=== PATIENT | male | born 1955 | race Two or more races ===

== ENCOUNTER 2017-04-30 12:37 | Inpatient (IN) | payer MEDICAID ==
[~2017-04-30] VITALS: Ht 167.6 cm; Wt 80.7 kg
[~2017-04-30 12:37] MED LIST: DESFLURANE ANESTHESIA GAS 240 ML BOTTLE IH ONE; DEXAMETHASONE SOD PHOSPHATE 4 MG INJ IV ONE; GLYCOPYRROLATE 0.2 MG/ML VIAL MC ONE; KETOROLAC TROMETHAMINE 30 MG INJ IM ONE; LIDOCAINE HCL 2% 20 ML VIAL MC ONE; NEOSTIGMINE METHYLSULFATE 10 MG/10 ML VIAL IV ONE; ONDANSETRON 4 MG/2 ML VIAL IV ONE; PROPOFOL 200 MG/20 ML BOTTLE IV ONE
--- NOTE | 2017-04-30 12:51 | NUR ---
Dr Elaine at the bedside for MSE.
[2017-04-30 13:20] LABS: *BLOOD, URINE Trace-intact (NEGATIVE); *CLARITY,URINE SLIGHTLY CLOUDY (CLEAR); *COLOR,URINE Orange (YELLOW); *KETONES,URINE 1+ (NEGATIVE); *PROTEIN,URINE 2+ (NEGATIVE); LEUKOCYTE ESTERASE ,URINE NEGATIVE (NEGATIVE); NITRITE, URINE NEGATIVE (NEGATIVE); PH,URINE 5.5 (5.0-8.0); UGLUCOSE NEGATIVE (NEGATIVE)
--- NOTE | 2017-04-30 13:20 | NUR ---
PATIENT TAKEN TO CT BY JANETH CORONEL PATIENT IN A WC.
[2017-04-30 13:32] LABS: *BILIRUBIN,URIN 2+ (NEGATIVE)
[2017-04-30 13:34] LABS: BACTERIA,URINE NONE SEEN /HPF (NONE SEEN); MUCUS,URINE MODERATE /LPF (0-FEW); SQUAMOUS EPITHELIAL CELL,UR FEW /HPF (NONE SEEN); URINE AMORPHOUS URATE FEW /HPF; WBC,URINE 0-3 /HPF (0-3)
[2017-04-30] MEDS ORDERED: IV NORMAL SALINE 1000 ML BAG IV ONE (14:30)
[2017-04-30] MEDS ORDERED: CEFTRIAXONE 1 G in IV DEXTROSE 5% 50 ML IV ONE (14:45)
[2017-04-30] MEDS ORDERED: METRONIDAZOLE 500 MG/NS 100 ML PIGGYBACK IV ONE (14:45)
[2017-04-30] MEDS ORDERED: CEFTRIAXONE 1 G VIAL ONE (14:50)
[2017-04-30 14:53] LABS: BASOPHILS # (AUTO) 0.1 K/uL (0.0-8.0); BASOPHILS % (AUTO) 0.4 % (0.0-2.0); EOSINOPHILS % (AUTO) 0.1 % (0.0-7.0); HEMATOCRIT 42.9 % (36.7-47.1); HEMOGLOBIN 14.5 g/dL (12.5-16.3); LYMPHOCYTES # (AUTO) 0.9 K/uL (20.0-40.0); MEAN CORPUSCULAR HEMOGLOBIN 29.5 uug (23.8-33.4); MEAN CORPUSCULAR HGB CONC 34 g/dL (32.5-36.3); MEAN CORPUSCULAR VOLUME 87.5 fL (73.0-96.2); MONOCYTES # (AUTO) 1.8 K/uL (2.0-10.0); MONOCYTES % (AUTO) 9.8 % (0.0-11.0); NEUTROPHILS # (AUTO) 15.5 K/uL (1.8-8.9); NEUTROPHILS % (AUTO) 84.7 % (38.5-71.5); PLATELET COUNT (AUTO) 176 K/uL (152-348); WHITE BLOOD COUNT (AUTO) 18.3 K/uL (3.6-10.2)
[2017-04-30] MEDS ORDERED: ONDANSETRON 4 MG/2 ML VIAL ONE (14:54)
[2017-04-30 14:59] LABS: CREATININE 1.1 mg/dL (0.6-1.3); POTASSIUM 3.6 mmol/L (3.5-5.1)
[2017-04-30] MEDS ORDERED: MORPHINE SULFATE 4 MG/1 ML DISP.SYRIN ONE (14:59)
[2017-04-30] MEDS ORDERED: METRONIDAZOLE 500 MG/NS 100ML 100 ML IV ONE (14:59)
[2017-04-30] MEDS ORDERED: ONDANSETRON IV *ER 4 MG/2 ML VIAL IV ONE (15:00)
[2017-04-30] MEDS ORDERED: MORPHINE SULFATE 4 MG/1 ML DISP.SYRIN IV ONE (15:00)
[2017-04-30] MEDS ORDERED: HYDROMORPHONE 1 MG/1 ML DISP.SYRIN IV ONE (15:00)
[2017-04-30 15:04] LABS: BILIRUBIN,TOTAL 2.5 mg/dL (0.2-1.0); TOTAL PROTEIN, SERUM 7.2 g/dL (6.4-8.2)
--- NOTE | 2017-04-30 15:31 | NUR ---
DR SALGADO(SURGEON) AT THE BEDSIDE FOR FAMILY AND PT CONSULT.
--- NOTE | 2017-04-30 15:32 | NUR ---
Pt signed consent for surgeory after Dr Valencia explaination. Pre op check list completed and placed in the chart.
--- NOTE | 2017-04-30 15:49 | NUR ---
Patient is resting comfortably in bed with eyes closed, NAD noted.
[2017-04-30] MEDS ORDERED: BUPIVACAINE 0.25% 30 ML VIAL ONE (16:00)
[2017-04-30] MEDS ORDERED: SUCCINYLCHOLINE CHLORIDE 200 MG/10 ML VIAL ONE (16:01)
[2017-04-30] MEDS ORDERED: ROCURONIUM BROMIDE 50 MG/5 ML VIAL ONE (16:01)
--- NOTE | 2017-04-30 16:16 | NUR ---
Pt left Er via dominick w/ OR team in , all belongings sent w/ family.
[2017-04-30] MEDS ORDERED: POLYMYXIN B SULFATE 500,000 UNITS, BACITRACIN 50,000 UNITS, NORMAL SALINE 20 ML MC ONE ×3 (17:00)
[2017-04-30] MEDS ORDERED: FENTANYL CITRATE 100 MCG/2 ML AMPUL ONE (18:02)
[2017-04-30] MEDS ORDERED: HYDROCODONE/APAP 5-325MG TABLET PO PRN (18:30)
[2017-04-30] MEDS ORDERED: ONDANSETRON 4 MG/2 ML VIAL IV PRN (18:30)
--- NOTE | 2017-04-30 18:35 | NUR ---
RECIEVED PATIENT FROM RR AWAKE ALERT VS TAKEN STABLE SMALL BANDAGE X4 AT ABD D/I WITH ONE DIANE INPLACE DRAINING MOD AMT OF RED DRAINAGE FLD CONTINUE O2 AT 3L O2 SAT WAS 94% NO PAIN AT THIS ON FALL PRECAUTION BED ALARM ON AND CALL LIGHT WITHIN REACH ,REMIND TO CALL WHEN NEEDED
[2017-04-30 18:39] VITALS: BP 118/73
--- NOTE | 2017-04-30 18:45 | NUR ---
START WITH ICE CHIP ZOE WELL NO N/V CLOSED OBSERVATION
--- NOTE | 2017-04-30 19:00 | NUR ---
Received patient awake, able to communicate in Emirati only with a little Australian. Complaint of tolerable pain at this time on lower abdomen puncture sites. Noted puncture sites x3 with band aid intact. Lower abdomen puncture site with DIANE, intact and patent with moderate amount of bloody output. IVF infusing on right FA, no s/s of infiltration noted. Safety measures maintained. Continue care as planned.
[2017-04-30] MEDS: IV LACTATED RINGERS SOLUTION 1,000 ML IV PRN (19:03)
[2017-04-30] MEDS: MORPHINE SULFATE 2 MG/1 ML DISP.SYRIN IV PRN ×2 (20:10→23:23)
[2017-04-30] MEDS: PANTOPRAZOLE SODIUM 40 MG VIAL IV SCH (20:10)
[2017-04-30] MEDS: CEFAZOLIN 1 G in PREMIXED 1 EACH IV SCH (20:10)
[2017-04-30 20:33] VITALS: BP 138/84
[2017-04-30] MEDS: METRONIDAZOLE 500 MG/NS 100ML 500 MG in PREMIXED 1 EACH IV SCH (23:19)
[2017-05-01] VITALS: BP 141/77
[2017-05-01] MEDS: MORPHINE SULFATE 2 MG/1 ML DISP.SYRIN IV PRN ×2 (01:36→15:10)
[2017-05-01] MEDS: IV LACTATED RINGERS SOLUTION 1,000 ML IV PRN (02:33)
[2017-05-01] MEDS: CEFAZOLIN 1 G in PREMIXED 1 EACH IV SCH ×3 (03:03→18:15)
[2017-05-01 04:00] VITALS: BP 125/70
[2017-05-01 06:18] LABS: BASOPHILS % (AUTO) 0.2 % (0.0-2.0); HEMATOCRIT 40.3 % (36.7-47.1); HEMOGLOBIN 13.6 g/dL (12.5-16.3); LYMPHOCYTES # (AUTO) 0.6 K/uL (20.0-40.0); LYMPHOCYTES % (AUTO) 3.6 % (20.5-51.5); MEAN CORPUSCULAR HEMOGLOBIN 29.9 uug (23.8-33.4); MEAN CORPUSCULAR HGB CONC 34 g/dL (32.5-36.3); MEAN CORPUSCULAR VOLUME 88.7 fL (73.0-96.2); MONOCYTES # (AUTO) 1.5 K/uL (2.0-10.0); MONOCYTES % (AUTO) 8.3 % (0.0-11.0); NEUTROPHILS # (AUTO) 15.6 K/uL (1.8-8.9); NEUTROPHILS % (AUTO) 87.9 % (38.5-71.5); PLATELET COUNT (AUTO) 176 K/uL (152-348); RED BLOOD CELL COUNT(AUTO) 4.54 MIL/uL (4.06-5.63); WHITE BLOOD COUNT (AUTO) 17.7 K/uL (3.6-10.2)
--- NOTE | 2017-05-01 06:19 | NUR ---
END SHIFT REPORT: Medicated 3x for pain with relief. No further complaint presented. IS use and frequent turning encouraged. No s/s of adverse reaction noted from antibiotics. All needs attended and met. No significant event reported all night.
[2017-05-01] MEDS: METRONIDAZOLE 500 MG/NS 100ML 500 MG in PREMIXED 1 EACH IV SCH ×3 (06:23→22:20)
[2017-05-01] MEDS: MORPHINE SULFATE 4 MG/1 ML DISP.SYRIN IV PRN ×3 (06:31→21:42)
[2017-05-01] MEDS: PANTOPRAZOLE SODIUM 40 MG VIAL IV SCH (10:13)
[2017-05-01 11:05] VITALS: BP 126/61
[2017-05-01 15:05] VITALS: BP 123/72
--- NOTE | 2017-05-01 19:00 | NUR ---
Patient in no distress, no SOB. Pain management as ordered. Incision sites on lower abdomen intact, no bleeding noted. DIANE drain on suprapubic site intact/patent, draining slightly red tinged liquid. VS stable, afebrile. Safety measures in place.
--- NOTE | 2017-05-01 19:25 | NUR ---
Received pt lying in bed. AAOx4. Not in acute distress. IV site on RFA intact and patent. O2 sat @ 91% on RA. DIANE drain in place. Safety measure initiated and call bear within reach.
[2017-05-01 19:54] VITALS: BP 141/76
--- NOTE | 2017-05-01 21:20 | NUR ---
pt seen by Dr. Valencia and order to increase Morphine to 6mg iv q2hrs prn for pain. Order carried out.
--- NOTE | 2017-05-01 23:42 | NUR ---
Drained DIANE drain and obtain 75ml of serosanguineous drainage.
[2017-05-02] MEDS: CEFAZOLIN 1 G in PREMIXED 1 EACH IV SCH ×3 (02:06→18:07)
[2017-05-02] MEDS: MORPHINE SULFATE 4 MG/1 ML DISP.SYRIN IV PRN ×4 (02:06→20:39)
[2017-05-02 04:00] VITALS: BP 146/92
[2017-05-02] MEDS: METRONIDAZOLE 500 MG/NS 100ML 500 MG in PREMIXED 1 EACH IV SCH ×3 (06:06→23:44)
[2017-05-02] MEDS: PANTOPRAZOLE SODIUM 40 MG TABLET.DR PO SCH (06:06)
--- NOTE | 2017-05-02 06:23 | NUR ---
Pt AOx4, Thai speaking only. Pain on abdominal area manage with Morphine 6mg q2hrs prn. DIANE drain intact and draining well. IV site on RFA intact and patent. Not in acute distress. O2 sat at 92%. Safety measure maintained and call bear within reach.
[2017-05-02 06:37] LABS: BASOPHILS % (AUTO) 0.1 % (0.0-2.0); EOSINOPHILS % (AUTO) 0.1 % (0.0-7.0); HEMATOCRIT 44.5 % (36.7-47.1); HEMOGLOBIN 14.9 g/dL (12.5-16.3); LYMPHOCYTES # (AUTO) 0.9 K/uL (20.0-40.0); LYMPHOCYTES % (AUTO) 6.4 % (20.5-51.5); MEAN CORPUSCULAR HEMOGLOBIN 29.8 uug (23.8-33.4); MEAN CORPUSCULAR HGB CONC 34 g/dL (32.5-36.3); MEAN CORPUSCULAR VOLUME 88.7 fL (73.0-96.2); MONOCYTES # (AUTO) 1.5 K/uL (2.0-10.0); MONOCYTES % (AUTO) 11.1 % (0.0-11.0); NEUTROPHILS # (AUTO) 11.1 K/uL (1.8-8.9); NEUTROPHILS % (AUTO) 82.3 % (38.5-71.5); PLATELET COUNT (AUTO) 242 K/uL (152-348); RED BLOOD CELL COUNT(AUTO) 5.01 MIL/uL (4.06-5.63); WHITE BLOOD COUNT (AUTO) 13.5 K/uL (3.6-10.2)
--- NOTE | 2017-05-02 07:30 | NUR ---
Rec'd pt in bed awake. A&Ox4. Frisian speaking only. Communicated with pt via staff translation. Overbed trapeze in place. Pt admitted for appendicitis, status post appendectomy. Noted with 3 surgical sites on abdominal area. Noted with 80mL serosanguineous output to DIANE drain to suprapubic area at this time. Pt denies pain at this time. Denies nausea. Will monitor for change.
[2017-05-02] MEDS: MORPHINE SULFATE 2 MG/1 ML DISP.SYRIN IV PRN (08:22)
--- NOTE | 2017-05-02 09:00 | NUR ---
Instructed patient to use incentive spirometer as ordered. Patient verbalized understanding.
[2017-05-02] MEDS ORDERED: BISACODYL 5 MG TABLET.DR PO ONE (11:15)
[2017-05-02 11:30] VITALS: BP 129/84
[2017-05-02 13:32] LABS: CREATININE 1.1 mg/dL (0.6-1.3); POTASSIUM 4.1 mmol/L (3.5-5.1)
[2017-05-02 13:49] LABS: BILIRUBIN,TOTAL 0.8 mg/dL (0.2-1.0); TOTAL PROTEIN, SERUM 6.6 g/dL (6.4-8.2)
[2017-05-02 15:30] VITALS: BP 155/83
--- NOTE | 2017-05-02 16:15 | NUR ---
Encouraged patient to move from bed to chair, out of bed as ordered and to use incentive spirometer. Family at bedside. Patient/family verbalized understanding but patient Addendum: 05/02/17 at 1846 by LUISA AGUILAR RN Add: but patient refused to be transferred from bed to chair at this time and stated he will try later.
[2017-05-02 20:00] VITALS: BP 157/90
--- NOTE | 2017-05-02 21:00 | NUR ---
PATIENT ALERT, ORIENTED,AFEBRILE,ABDOMEN REMAINS DISTENDED AND TENDER TO SURGICAL SITE,BOWEL SOUND PRESENT,MORPHINE IV MEDICATED FOR PAIN CONTROL, USING OF INCENTIVE SPIROMETER,ENCOURAGE TO AMBULATE WITH FAMILY ON [address],SEROUS DRAINAGE SMALL AMOUNT NOTED.
[2017-05-03] MEDS: MORPHINE SULFATE 2 MG/1 ML DISP.SYRIN IV PRN (00:45)
[2017-05-03] MEDS: CEFAZOLIN 1 G in PREMIXED 1 EACH IV SCH ×3 (03:58→18:51)
[2017-05-03] MEDS: MORPHINE SULFATE 4 MG/1 ML DISP.SYRIN IV PRN ×4 (03:59→20:47)
[2017-05-03 04:41] VITALS: BP 150/81
[2017-05-03] MEDS: METRONIDAZOLE 500 MG/NS 100ML 500 MG in PREMIXED 1 EACH IV SCH ×3 (06:27→23:14)
[2017-05-03] MEDS: PANTOPRAZOLE SODIUM 40 MG TABLET.DR PO SCH (06:27)
[2017-05-03 06:30] LABS: BASOPHILS % (AUTO) 0.5 % (0.0-2.0); EOSINOPHILS # (AUTO) 0.2 K/uL (0.0-0.7); EOSINOPHILS % (AUTO) 2.3 % (0.0-7.0); HEMATOCRIT 43.6 % (36.7-47.1); HEMOGLOBIN 14.7 g/dL (12.5-16.3); LYMPHOCYTES % (AUTO) 9.9 % (20.5-51.5); MEAN CORPUSCULAR HEMOGLOBIN 29.9 uug (23.8-33.4); MEAN CORPUSCULAR HGB CONC 34 g/dL (32.5-36.3); MEAN CORPUSCULAR VOLUME 88.9 fL (73.0-96.2); MONOCYTES # (AUTO) 1.6 K/uL (2.0-10.0); MONOCYTES % (AUTO) 16.1 % (0.0-11.0); NEUTROPHILS % (AUTO) 71.2 % (38.5-71.5); PLATELET COUNT (AUTO) 252 K/uL (152-348); RED BLOOD CELL COUNT(AUTO) 4.91 MIL/uL (4.06-5.63); WHITE BLOOD COUNT (AUTO) 9.8 K/uL (3.6-10.2)
[2017-05-03 07:22] LABS: BILIRUBIN,TOTAL 0.5 mg/dL (0.2-1.0); PHOSPHOROUS 3.7 mg/dL (2.5-4.9); POTASSIUM 4.3 mmol/L (3.5-5.1); TOTAL PROTEIN, SERUM 6.2 g/dL (6.4-8.2)
[2017-05-03] MEDS: IV LACTATED RINGERS SOLUTION 1,000 ML IV PRN (08:00)
--- NOTE | 2017-05-03 08:00 | NUR ---
awake alert cooperate well speak yakut only no sob or pain at this time enc to use incentive spirometer when awake doing well up yann 1500 ABD SLIGHTLY DISTENTION STATE PASSING LITTLE GAS DIANE INTACT WITH SMALL SEROSANQUINEOUS DRANAGE ON FALL PRECAUTION CALL LEDEZMA IN REACH AND REMIND TO CALL WHEN NEEDED
[2017-05-03 08:21] LABS: BAND % (MANUAL) 4 % (0-10); EOSINOPHILS % (MANUAL) 2 % (0-8); LYMPHOCYTES % (MANUAL) 10 % (20-40); MONOCYTES % (MANUAL) 14 % (2-10); NEUTROPHILS % (MANUAL) 70 % (42-75)
--- NOTE | 2017-05-03 10:00 | NUR ---
ASSIST UP AMBULATE IN THE [address] DOING WELL VOIDING OK USE URENAL AT BEDSIDE RESTING WELL
[2017-05-03 11:21] VITALS: BP 160/84
[2017-05-03] MEDS: AMLODIPINE 5 MG TABLET PO SCH (14:30)
--- NOTE | 2017-05-03 14:30 | NUR ---
OOB UP AMB IN THE [address] DOING WELL STATE NO PASSING GAS YET NO N/V STATE PAIN MED HELP TO RELIEF PAIN
[2017-05-03] MEDS ORDERED: BISACODYL 10 MG SUPP.RECT RC STA (14:50)
--- NOTE | 2017-05-03 15:00 | NUR ---
DR SALGADO SEEN PATIENT AND PT CONDITION REGARDING NO PASSING GAS AND ABD DISTENTION NEW ORDER IN CHART DULCOLAX SUPP GIVE AND KUB WAS ORDER
[2017-05-03 15:25] VITALS: BP 165/91
--- NOTE | 2017-05-03 15:45 | NUR ---
KUB AT BEDSIDE ZOE PROCEDURE WELL RESTING QUIET CONTINUE IVF ORDER
--- NOTE | 2017-05-03 16:20 | NUR ---
DR SALGADO WAS CALL REGARDING KUB RESULT AND MESSAGE LEFT
--- NOTE | 2017-05-03 16:35 | NUR ---
DR SALGADO CALL BACK AND NOTIFY OF KUB RESULT ,NEW ORDER IN CHART DIET CHANGE TO CLEAR LIQ
--- NOTE | 2017-05-03 17:30 | NUR ---
STABLE HEMODYNAMIC STATUS NO N/V BUT ABD STILL DISTENSION CONTINUE IVF INFUSION WELL SAFETY MEASURE PROVIDED CALL LIGHT IN REACH AND REMIND TO CALL WHEN NEEDED
--- NOTE | 2017-05-03 18:00 | NUR ---
OOB UP IN CHAIR EAT CLEAR LIQ ZOE MOD AMT NO N/V START BURBING BUT NO BM NO PASSING GAS AT THIS TIME WILL AMBULATE AFTER DINNER FAMILY AT BEDSIDE NO PAIN
--- NOTE | 2017-05-03 18:30 | NUR ---
AMB IN THE HALLWAY X2 AND ASSIST TO USE BRP ,HAVING 1 SMALL BM AND STATE PASSING GAS AT THIS TIME ,BACK TO BED RESTING WELL
[2017-05-03 20:00] VITALS: BP 149/77
--- NOTE | 2017-05-03 20:00 | NUR ---
ABDOMEN LESS DISTENDED,MILD TENDER,SMALL AMOUNT SEROUS DRAINAGE TO DIANE DRAINAGE LOWER ABDOMEN, AMBULATE IN HALLWAY WELL, PAIN MEDS GIVEN,PATIENT STATED ALREADY PASSING GAS , AND FEELS BETTER.
[2017-05-04] MEDS: MORPHINE SULFATE 4 MG/1 ML DISP.SYRIN IV PRN ×3 (01:57→08:52)
[2017-05-04] MEDS: CEFAZOLIN 1 G in PREMIXED 1 EACH IV SCH ×3 (02:11→18:45)
[2017-05-04 04:54] VITALS: BP 154/86
[2017-05-04] MEDS: PANTOPRAZOLE SODIUM 40 MG TABLET.DR PO SCH (06:02)
[2017-05-04] MEDS: METRONIDAZOLE 500 MG/NS 100ML 500 MG in PREMIXED 1 EACH IV SCH ×3 (06:02→23:41)
[2017-05-04 06:54] LABS: BASOPHILS % (AUTO) 0.4 % (0.0-2.0); EOSINOPHILS # (AUTO) 0.2 K/uL (0.0-0.7); EOSINOPHILS % (AUTO) 2.1 % (0.0-7.0); HEMATOCRIT 42.4 % (36.7-47.1); HEMOGLOBIN 14.2 g/dL (12.5-16.3); LYMPHOCYTES # (AUTO) 0.7 K/uL (20.0-40.0); LYMPHOCYTES % (AUTO) 7.2 % (20.5-51.5); MEAN CORPUSCULAR HEMOGLOBIN 29.6 uug (23.8-33.4); MEAN CORPUSCULAR HGB CONC 33 g/dL (32.5-36.3); MEAN CORPUSCULAR VOLUME 88.5 fL (73.0-96.2); MONOCYTES # (AUTO) 1.5 K/uL (2.0-10.0); MONOCYTES % (AUTO) 15.6 % (0.0-11.0); NEUTROPHILS # (AUTO) 7.2 K/uL (1.8-8.9); NEUTROPHILS % (AUTO) 74.7 % (38.5-71.5); PLATELET COUNT (AUTO) 232 K/uL (152-348); RED BLOOD CELL COUNT(AUTO) 4.79 MIL/uL (4.06-5.63); WHITE BLOOD COUNT (AUTO) 9.6 K/uL (3.6-10.2)
--- NOTE | 2017-05-04 07:50 | NUR ---
Awake, alert, oriented x 4, malay speaking, on moderate high back rest. Lap site x 3, clean and dry. Abdomen firm, distended, complaining of severe pain. IVF infusing.
[2017-05-04] MEDS: AMLODIPINE 5 MG TABLET PO SCH (08:51)
[2017-05-04] MEDS: IV LACTATED RINGERS SOLUTION 1,000 ML IV PRN (08:52)
--- NOTE | 2017-05-04 09:00 | NUR ---
Assisted out of bed then ambulating in the hallway, and sitting on the chair. Use of IS reinstructed.
[2017-05-04 09:37] LABS: BAND % (MANUAL) 6 % (0-10); BASOPHILS % (MANUAL) 1 % (0-2); EOSINOPHILS % (MANUAL) 2 % (0-8); LYMPHOCYTES % (MANUAL) 9 % (20-40); MONOCYTES % (MANUAL) 13 % (2-10); NEUTROPHILS % (MANUAL) 69 % (42-75)
--- NOTE | 2017-05-04 11:00 | NUR ---
Dr. Valencia seen and examined patient, aware of firm and distended abdomen. With order of Dulcolax suppository. DIANE drain removed, dressing applied.
[2017-05-04 11:02] VITALS: BP 133/88
[2017-05-04] MEDS ORDERED: BISACODYL 10 MG SUPP.RECT RC ONE (12:15)
[2017-05-04] MEDS: MORPHINE SULFATE 2 MG/1 ML DISP.SYRIN IV PRN ×2 (13:24→21:12)
[2017-05-04 15:00] VITALS: BP 149/77
--- NOTE | 2017-05-04 16:39 | NUR ---
With BM to moderate amount stool after Dulcolax suppository. Diet advance to full liquid.
--- NOTE | 2017-05-04 18:53 | NUR ---
Afebrile. Full liquids followed up, to be brought in from the dietary
[2017-05-04 20:00] VITALS: BP 165/86
[2017-05-05] MEDS: CEFAZOLIN 1 G in PREMIXED 1 EACH IV SCH ×3 (02:50→17:54)
[2017-05-05] MEDS: MORPHINE SULFATE 2 MG/1 ML DISP.SYRIN IV PRN ×3 (02:50→23:39)
--- NOTE | 2017-05-05 04:30 | NUR ---
ASSUMED CARE AT 0430.DUE MEDS GIVEN AND PRN MEDICATION FOR PAIN GIVEN REQUESTED .SEE EMAR . PATIENT IN BED NO RESPIRATORY DISTRESS . URINAL AT B/S. CALL LIGHT WITH IN REACH .
[2017-05-05 04:43] VITALS: BP 154/80
[2017-05-05] MEDS: PANTOPRAZOLE SODIUM 40 MG TABLET.DR PO SCH (06:12)
[2017-05-05] MEDS: METRONIDAZOLE 500 MG/NS 100ML 500 MG in PREMIXED 1 EACH IV SCH ×3 (06:12→22:18)
--- NOTE | 2017-05-05 08:00 | NUR ---
AWAKE ALERT COOPERATE WELL STATE PAIN MED HELP TO RELEFT PAIN NO N/V ABD STILL DISTENSION STATE NO BM BUT BURB AND PASSING LITLLE GAS ENC TO AMB AND USE IS AT BEDSIDE CONTINUE IVF RESTING QUIET WITH CALL LIGHT IN REACH
[2017-05-05] MEDS: MORPHINE SULFATE 4 MG/1 ML DISP.SYRIN IV PRN ×3 (08:32→21:27)
[2017-05-05] MEDS: AMLODIPINE 5 MG TABLET PO SCH (08:32)
--- NOTE | 2017-05-05 10:00 | NUR ---
OOB UP AMB WITH ASSIST DOING WELL DR SALGADO SEEN PATIENT AND LAB THIS AM AND ORDER X RAY SB FOLLOW THROUGH TODAY KEEP NPO NOW
[2017-05-05 11:00] VITALS: BP 164/83
[2017-05-05] MEDS ORDERED: DIATR MEGLU/DIATRIZOATE SODIUM 120 ML BOTTLE ONE (11:09)
[2017-05-05] MEDS: IV LACTATED RINGERS SOLUTION 1,000 ML IV PRN (12:34)
--- NOTE | 2017-05-05 13:45 | NUR ---
ASSIST MAKENNA VELIZ IN THE [address] X2 AND LY DOWN ON RIGHT SIDE ORDER FOR NEXT X RAY DR CHUN
--- NOTE | 2017-05-05 15:00 | NUR ---
XRAY DONE AT BEDSIDE NO RESULT YET RESTING WELL PAIN UNDER CONTROL
[2017-05-05 15:06] VITALS: BP 159/86
--- NOTE | 2017-05-05 18:00 | NUR ---
HEMODYNAMIC STATUS STABLE PAIN UNDER CONTROL SAFETY MEASURE PROVIDED CALL LIGHT IN REACH CONTINUE IVF AND ANTIBIOTICS
--- NOTE | 2017-05-05 18:00 | NUR ---
DR NAGEL SEEN PATIENT THIS PM NO NEW ORDER
--- NOTE | 2017-05-05 19:20 | NUR ---
RECEIVED PT AWAKE, ALERT ORIENTEDX3. PT MACEDONIAN SPEAKING BUT UNDERSTAND BASIC BHUTANESE. PATIENT IV INTACT AND PATENT. PT SHOWS NO SIGNS OF DISTRESS. CALL LIGHT WITHIN REACH. BED ALARM ON AND IN LOW POSITION. WILL CONTINUE TO MONITOR.
[2017-05-05 20:00] VITALS: BP 170/98
[2017-05-06] MEDS: IV LACTATED RINGERS SOLUTION 1,000 ML IV PRN (00:47)
[2017-05-06] MEDS: CEFAZOLIN 1 G in PREMIXED 1 EACH IV SCH ×2 (03:09→10:40)
[2017-05-06] MEDS: MORPHINE SULFATE 4 MG/1 ML DISP.SYRIN IV PRN ×2 (03:35→06:47)
[2017-05-06 05:11] VITALS: BP 145/77
[2017-05-06] MEDS: PANTOPRAZOLE SODIUM 40 MG TABLET.DR PO SCH (06:12)
[2017-05-06] MEDS: METRONIDAZOLE 500 MG/NS 100ML 500 MG in PREMIXED 1 EACH IV SCH ×2 (06:13→14:11)
--- NOTE | 2017-05-06 06:14 | NUR ---
NON-ADMINISTERED PROTONIX BECAUSE PT IS ON NPO. WILL CONTINUE TO MONITOR.
--- NOTE | 2017-05-06 06:15 | NUR ---
PT SLEPT INTERMITTENTLY. PT WALKED THE HALLWAY 3 ROUNDS. PT TOLERATE ROOM AIR. PT STABLE. PT AWARE HE IS ON NPO. PRESCRIBED MEDICATION GIVEN AND TOLERATED IT WELL. PT GIVEN PAIN MEDICATION. BED ALARM ON . CALL LIGHT WITHIN REACH. SAFETY AND COMFORT PROVIDED. WILL ENDORSE TO DAYSHIFT NURSE.
--- NOTE | 2017-05-06 07:22 | NUR ---
Received pt sleeping in a supine semi fowlers position with no apparent s/s of pain, distress, discomfort or SOB, arousable to name. Noted walker near bedside. IV hydration LR running at 100ml/hr.
[2017-05-06] MEDS: AMLODIPINE 5 MG TABLET PO SCH (08:10)
[2017-05-06] MEDS: MORPHINE SULFATE 2 MG/1 ML DISP.SYRIN IV PRN (08:11)
--- NOTE | 2017-05-06 09:00 | NUR ---
Informed by CAREER SERVICES COORDINATOR that pt was noted to be bleeding after using the RR. Pt was unaware he was bleeding. Noted red bright blood on a towel covering his penile area. Pt stated he had rectal bleeding once and went to [facility]
--- NOTE | 2017-05-06 09:58 | NUR ---
Hospitalist and Dr. Valencia aware of pt. bleeding episode
[2017-05-06 11:24] VITALS: BP 146/80
--- NOTE | 2017-05-06 13:42 | NUR ---
Informed Dr if pt can start a clear liquid diet, dietary aware and will bring him something to eat. Dr is also aware about the pt requesting a week off from work.
[2017-05-06] MEDS ORDERED: HYDR-3326 PO (14:08)
[2017-05-06] MEDS ORDERED: AMLO5TAB2 PO (14:08)
[2017-05-06] MEDS ORDERED: CEPH-570 PO (14:08)
--- NOTE | 2017-05-06 15:36 | NUR ---
Pt is being discharger with orders by . Personal belonging signed for, medication explained to patient and is able to understand. Informed him about the follow up appointed needed with Dr. Valencia. Pt is leaving with grandson. Pt's VS are stable. No apparent s/s of pain, distress, discomfort or SOB at this time, pt was informed to go to the nearest hospital if he presents with any s/s of fever, diarrhea or N/V
== END 2017-05-06 15:45 | disposition home or self-care (01) | DRG 710 ==
LOC: ER 12:37 → TELE 16:18 → MED 05-01 12:10
PROVIDERS: ADMIT Hospitalist; ATTEND Hospitalist
PROC: 0DTJ4ZZ Resection of Appendix, Percutaneous Endoscopic Approach (ICD-10-PCS; principal; 2017-04-30 16:48)
DX: A41.9 Sepsis, unspecified organism (principal); J90 Pleural effusion, not elsewhere classified; K56.699 Other intestinal obstruction unspecified as to partial versus complete obstruction; K35.3 Acute appendicitis with localized peritonitis; E44.1 Mild protein-calorie malnutrition; E87.1 Hypo-osmolality and hyponatremia; Z68.28 Body mass index [BMI] 28.0-28.9, adult; E66.9 Obesity, unspecified; J98.11 Atelectasis; Z87.01 Personal history of pneumonia (recurrent); I10 Essential (primary) hypertension; B96.20 Unspecified Escherichia coli [E. coli] as the cause of diseases classified elsewhere; M25.551 Pain in right hip; W19.XXXA Unspecified fall, initial encounter; Y92.89 Other specified places as the place of occurrence of the external cause; E86.1 Hypovolemia; E88.09 Other disorders of plasma-protein metabolism, not elsewhere classified
CPT/HCPCS: 36415; 71045; 72192; 74018; 74250; 83690; 83735; 84100; 85025; 87070; 87075; 87077; 87086; 93005; A4663; C9113; J0330; J0690; J0696; J1100; J1885; J2270; J2405; J2710; J3010; J3490; J7030; J7040; J7120; Q9963